=== PATIENT | female | born 2000 | race Two or more races ===

== ENCOUNTER 2025-01-12 13:09 | Emergency (ER) | payer OTHER ==
[~2025-01-12] VITALS: Ht 157.5 cm; Wt 80.3 kg
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
[2025-01-12] MEDS: ACETAMINOPHEN 325 MG TAB PO ONE (14:19)
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
[2025-01-12] MEDS ORDERED: IBU600T PO (15:51)
[2025-01-12 16:09] VITALS: BP 123/69; PULSE 64; RESP 16; TEMP 98.1; O2SAT 100
== END 2025-01-12 16:21 | disposition home or self-care (01) ==
LOC: ER 13:12 → EDBD 13:12 → ER 16:20
DX: S30.11XA Contusion of abdominal wall, initial encounter (principal); V43.52XA Car driver injured in collision with other type car in traffic accident, initial encounter; Y93.89 Activity, other specified; Y92.488 Other paved roadways as the place of occurrence of the external cause; Y99.8 Other external cause status
CPT/HCPCS: 36415; 70250; 74018; 84702